=== PATIENT | female | born 1955 | race Caucasian/White ===

== ENCOUNTER 2020-12-02 19:56 | Emergency (ER) | payer OTHER ==
[2020-12-02] MEDS ORDERED: MORPHINE SULFATE 4 MG/ML SYRINGE IVP STA (20:08)
--- NOTE | 2020-12-02 20:46 | XR ---
EXAMINATION TYPE: XR wrist complete LT DATE OF EXAM: 12/02/2020 COMPARISON: NONE HISTORY: Wrist pain TECHNIQUE: 3 views FINDINGS: There is comminuted transverse fracture distal radial metaphysis. There is 100% posterior d isplacement of the distal fragments with some overriding. There is also fracture of the ulnar styloid process. The carpal bones are intact. IMPRESSION: Comminuted displaced fractures as above involving distal radius and ulna.
--- NOTE | 2020-12-02 21:01 | ED ---
Upper Extremity HPI <Rohith Bass - Last Filed: 12/03/20 00:16> - General Source: patient, EMS Mode of arrival: EMS Limitations: physical limitation <Jonathan Petit - Last Filed: 12/03/20 00:47> - General Chief Complaint: Extremity Injury, Upper Stated Complaint: Lt Wrist Injury Time Seen by Provider: 12/02/20 20:04 - History of Present Illness Initial Comments: Patient is a 65-year-old female that presents to emergency problem complaining of left wrist pain. She notes she was [place] a birthday [place] when she slipped lost her balance and fell injuring her left wrist. She notes that she immediately took her watch off because she knew her wrist as well as follow-up and it was obviously deformed. Patient was a was parents while sitting up in bed during exam and interview. Saying that she got fentanyl and the ambulance ride over. She notes that she was having some breakthrough pain at the time of exam. She was otherwise a well-appearing 65-year-old female with no significant past medical history except for asthma and ALLERGIES. She denied any chest pain first breath headache nausea vomiting diarrhea constipation fever fatigue chills. (Jonathan Petit) - Related Data Previous Rx's Medication Instructions Recorded HYDROcodone/APAP 10-325MG [[place] 1 tab PO Q6HR PRN 3 Days #12 tab 12/03/20 10-325] Allergies Allergy/AdvReac Type Severity Reaction Status Date / Time aspirin Allergy Severe Wheezing Verified 12/02/20 20:16 NSAIDS (Non-Steroidal Allergy Severe Wheezing Verified 12/02/20 20:17 Anti-Inflamma Penicillins Allergy Severe Anaphylaxis Verified 12/02/20 20:17 Review of Systems ROS Other: All systems not noted in ROS Statement are negative. <Rohith Bass - Last Filed: 12/03/20 00:16> ROS Other: All systems not noted in ROS Statement are negative. <Jonathan Petit - Last Filed: 12/03/20 00:47> ROS Statement: Those systems with pertinent positive or pertinent negative responses have been documented in the HPI. General Exam Limitations: physical limitation General appearance: alert, in no apparent distress Head exam: Present: atraumatic, normocephalic, normal inspection Eye exam: Present: normal appearance, PERRL, EOMI. Absent: scleral icterus, conjunctival injection, periorbital swelling Neck exam: Present: normal inspection Respiratory exam: Present: normal lung sounds bilaterally. Absent: respiratory distress, wheezes, rales, rhonchi, stridor Cardiovascular Exam: Present: regular rate, normal rhythm, normal heart sounds. Absent: systolic murmur, diastolic murmur, rubs, gallop, clicks Left Forearm Wrist exam: Present: tenderness, swelling, deformity. Absent: normal inspection, full ROM, abrasion, laceration, ecchymosis, crepitus, tenderness over anatomical snuff box Neurological exam: Present: alert, oriented X3 Psychiatric exam: Present: normal affect, normal mood Skin exam: Present: warm, dry, intact, normal color. Absent: rash <Jonathan Petit - Last Filed: 12/03/20 00:47> Course Vital Signs 12/02/20 12/02/20 12/02/20 20:06 22:15 23:07 Temperature 97.5 F L Pulse Rate 73 73 74 Respiratory 18 18 18 Rate Blood Pressure 175/90 159/100 174/93 O2 Sat by Pulse 99 96 100 Oximetry 12/02/20 12/02/20 23:10 23:16 Temperature Pulse Rate 80 61 Respiratory 14 16 Rate Blood Pressure 189/98 160/91 O2 Sat by Pulse 100 99 Oximetry Procedures - Orthopedic Fracture Reduction Fracture #1 Consent Obtained: verbal consent Side: left Fracture Reduction Location: radius, ulna Analgesia: procedural sedation Technique: direct manipulation, traction/counter-traction Post-Reduction Neuro Exam: intact Post-Reduction Vascular Exam: intact Splint Applied: Yes Patient Tolerated Procedure: well - Orthopedic Splinting/Casting Injury #1 Side: left Upper Extremity Injury Location: wrist Upper Extremity Immobilizer: sugar tong splint - Procedural Sedation Procedural Sedation Start Time: 23:10 Procedural Sedation Stop Time: 23:16 Indications: fracture/dislocation reduction ASA Class: I Mallampati Airway Score: 2 Preparation: memory care director applied, pulse oximeter, capnometry used, supplemental O2 applied, suction/airway equipment at bedside, IV secured Ketamine: IV Ketamine Dose: 17 (mg) IV Propofol Dose (mgs): 17 Complications: none Patient Tolerated Procedure: well <Rohith Bass - Last Filed: 12/03/20 00:16> - Orthopedic Splinting/Casting Injury #1 Upper Extremity Immobilizer: Abdirashid wrap <Jonathan Petit - Last Filed: 12/03/20 00:47> - Procedural Sedation Presedation Evaluation: No acute concerns. History of mild asthma. (Rohith Bass) Additional Comments: Patient received a total of 0.25mg/kg of propofol and 0.25mg/kg of ketamine for procedural sedation which she tolerated well without incident. (Rohith Bass) Medical Decision Making - Radiology Data Radiology results: report reviewed, image reviewed <Jonathan Petit - Last Filed: 12/03/20 00:47> - Medical Decision Making Patient is a 65-year-old female complaining of left wrist pain [place] [employer] [place] X-ray the left wrist, 4 mg morphine ordered. X-ray left wrist: There is comminuted transverse fracture distal radial metaphysis. There is 100% posterior displacement of the distal fragments with some overriding. There is also fracture of the ulnar styloid process. Carpal bones are intact. Patient tolerated conscious sedation well, arm was splinted with a sugar tong splint. Case discussed with Dr. Bass, patient can discharge home with follow-up to orthopedics. Dr. Baca was consulted and wanted a postreduction computed tomography scan for follow-up in office use. (Jonathan Petit) - Radiology Data X-ray of the left wrist: There is comminuted transverse fracture distal radial metaphysis. There is 100% posterior displacement of the distal fragments with some overriding. There is also fracture of the ulnar styloid process the carpal bones are intact. CT of the left wrist: Impacted comminuted transverse fracture distal radius. Mild displacement. Ulnar styloid process fracture. No dislocation. (Jonathan Petit) Disposition <Rohith Bass - Last Filed: 12/03/20 00:16> Is patient prescribed a controlled substance at d/c from ED?: No Time of Disposition: 00:47 <Jonathan Petit - Last Filed: 12/03/20 00:47> Clinical Impression: Distal radius fracture, left, Closed fracture of styloid process of left ulna Disposition: HOME SELF-CARE Condition: Stable Instructions (If sedation given, give patient instructions): Wrist Injury (ED), Arm Fracture in Adults (ED) Additional Instructions: Please return to the Emergency Department if symptoms worsen or any other concerns. Follow-up with primary care in 1-2 days. Follow-up with orthopedics on Saturday. Take pain medication as prescribed. Keep splint on throughout the day. Prescriptions: HYDROcodone/APAP 10-325MG [[place] 10-325] 1 tab PO Q6HR PRN 3 Days #12 tab PRN Reason: Pain Referrals: None,Stated [Primary Care Provider] - 1-2 days Jose G Baca MD [STAFF PHYSICIAN] - 1-2 days
[2020-12-02] MEDS ORDERED: KETAMINE 10 MG/ML 20 ML VIAL IV ONE (21:49)
[2020-12-02] MEDS ORDERED: PROPOFOL 10 MG/ML 20 ML VIAL IV ONE (21:49)
[2020-12-02] MEDS ORDERED: ONDANSETRON 4 MG/2 ML VIAL IVP STA (21:55)
[2020-12-02] MEDS ORDERED: SODIUM CHLORIDE 0.9% 1,000 ML IV ONE (23:01)
[2020-12-03] MEDS ORDERED: HYDROcodone/APAP 10-325MG 1 EACH TAB PO ONE (00:31)
--- NOTE | 2020-12-03 00:44 | CT ---
EXAMINATION TYPE: CT forearm LT wo con DATE OF EXAM: 12/03/2020 COMPARISON: None HISTORY: wrist fracture CT DLP: 408.2 mGycm Automated exposure control for dose reduction was used. Images were obtained from the distal humerus to the distal metacarpals without contrast. There is impacted comminuted transverse fracture distal radial metaphysis. There is posterior displac ement of the major fragments 4 mm. There is no dislocation at the radiocarpal joint. There is displac ed fracture of the ulnar styloid process. Separation is 2 to 3 mm. The carpal bones are intact. The m etacarpals appear intact. The proximal radius and ulna appear intact. I see no evidence of a fracture at the elbow. Distal humerus is intact. There is no sign of elbow joint effusion. IMPRESSION: Impacted comminuted transverse fracture distal radius. Mild displacement. Ulnar styloid process fract ure. No dislocation.
[2020-12-03] MEDS ORDERED: ONDANSETRON 4 MG/2 ML VIAL IVP STA (00:57)
[2020-12-03] MEDS ORDERED: HYDROmorphone 1 MG/ML 1 ML SYRINGE IVP STA (00:57)
[2020-12-03 01:22] VITALS: BP 181/91; PULSE 78; RESP 15; TEMP 97.9
== END 2020-12-03 01:22 | disposition home or self-care (01) ==
LOC: EC 19:56
DX: S52.502A Unspecified fracture of the lower end of left radius, initial encounter for closed fracture (principal); S52.612A Displaced fracture of left ulna styloid process, initial encounter for closed fracture; Z88.6 Allergy status to analgesic agent; Z88.0 Allergy status to penicillin; W01.0XXA Fall on same level from slipping, tripping and stumbling without subsequent striking against object, initial encounter; Y92.39 Other specified sports and athletic area as the place of occurrence of the external cause
CPT/HCPCS: 73110; 73200; 96374; 96375 ×4; 96376; 96361; 99285; 25565; J2270; J2405 ×2; J1170; J2704; 25605

== ENCOUNTER 2020-12-04 15:38 | Emergency (ER) | payer OTHER ==
[2020-12-04] MEDS ORDERED: HYDROcodone/APAP 5-325MG 1 EACH TAB PO STA (18:55)
--- NOTE | 2020-12-04 19:23 | ED ---
General Adult HPI - General Chief complaint: Extremity Injury, Lower Stated complaint: broken arm, hand swelling-revisit Time Seen by Provider: 12/04/20 18:12 Source: family, RN notes reviewed Mode of arrival: wheelchair Limitations: no limitations - History of Present Illness Initial comments: 65-year-old female presents to the emergency room for a chief complaint of left arm pain. Patient reports that 2 days ago she slipped at a bowling alley and broke her wrist. States that the cast is digging into her elbow area. States that she did try to loosen the karol wrap however it is still unclear pain. Patient states the swelling in her hand is also worse which is concerning to her. She denies any numbness or tingling in the hand.Patient has no other complaints at this time including shortness of breath, chest pain, abdominal pain, nausea or vomiting, headache, or visual changes. - Related Data Previous Rx's Medication Instructions Recorded HYDROcodone/APAP 10-325MG [[place] 1 tab PO Q6HR PRN 3 Days #12 tab 12/03/20 10-325] Ondansetron Odt [Zofran Odt] 4 mg PO Q8HR PRN #10 tab 12/03/20 Allergies Allergy/AdvReac Type Severity Reaction Status Date / Time aspirin Allergy Severe Wheezing Verified 12/04/20 15:51 NSAIDS (Non-Steroidal Allergy Severe Wheezing Verified 12/04/20 15:51 Anti-Inflamma Penicillins Allergy Severe Anaphylaxis Verified 12/04/20 15:51 Review of Systems ROS Statement: Those systems with pertinent positive or pertinent negative responses have been documented in the HPI. ROS Other: All systems not noted in ROS Statement are negative. Past Medical History History of Any Multi-Drug Resistant Organisms: None Reported Past Psychological History: No Psychological Hx Reported Smoking Status: Never smoker Past Alcohol Use History: None Reported Past Drug Use History: None Reported General Exam Limitations: no limitations General appearance: alert Head exam: Present: atraumatic Eye exam: Present: normal appearance, PERRL, EOMI. Absent: scleral icterus, conjunctival injection ENT exam: Present: normal exam, mucous membranes moist Neck exam: Present: normal inspection, full ROM. Absent: tenderness Respiratory exam: Present: normal lung sounds bilaterally. Absent: respiratory distress, wheezes Cardiovascular Exam: Present: regular rate, normal rhythm, normal heart sounds Extremities exam: Present: normal capillary refill (Capillary refill less than 2 seconds, DP pulse 2+ left upper extremity), other (Moderate edema noted of the fingers of the left hand. compartment are soft throughout the left upper extremity. ) Course Vital Signs 12/04/20 15:46 Temperature 98.1 F Pulse Rate 103 H Respiratory 20 Rate Blood Pressure 190/96 O2 Sat by Pulse 97 Oximetry Medical Decision Making - Medical Decision Making Splint was removed and new splint was applied. This significantly helped patient's comfort. Wrist x-ray was obtained after splint applied. This showed a redemonstration of comminuted intra-articular fracture of the distal radius with improved anatomic alignment. Re-demonstration of mildly displaced ulnar styloid fracture at this time patient has information for orthopedics. She will call tomorrow. She will return for any worsening symptoms. Disposition Clinical Impression: Distal radius fracture, left, Closed fracture of styloid process of left ulna Disposition: HOME SELF-CARE Condition: Good Instructions (If sedation given, give patient instructions): Wrist Fracture in Adults (ED) Additional Instructions: Please follow up with orthopedics. Referral information was given at your previous visit. Call first thing tomorrow morning. Return to the emergency room for any worsening symptoms. Is patient prescribed a controlled substance at d/c from ED?: No Time of Disposition: 20:24
--- NOTE | 2020-12-04 19:46 | XR ---
EXAMINATION TYPE: XR wrist limited LT DATE OF EXAM: 12/04/2020 CLINICAL HISTORY: Wrist pain, fall TECHNIQUE: Frontal and lateral views of the left wrist were obtained COMPARISON: Left wrist CT same day and left wrist radiograph 12/03/2020 FINDINGS: Interval placement of overlying casting material which obscures fine bony details. Redemonstration of comminuted intra-articular fracture of the distal radius with improved anatomic alignment.. redemons tration of mildly displaced ulnar styloid fracture. Mild diffuse soft tissue swelling of the wrist. R emaining joint spaces are maintained. IMPRESSION: 1. Redemonstration of comminuted intra-articular fracture of the distal radius with improved anatomic alignment. 2. Redemonstration of mildly displaced ulnar styloid fracture.
[2020-12-04 21:00] VITALS: BP 180/96; PULSE 93; RESP 18; TEMP 98.2
== END 2020-12-04 20:38 | disposition home or self-care (01) ==
LOC: EC 15:38
DX: S52.612A Displaced fracture of left ulna styloid process, initial encounter for closed fracture (principal); S52.572A Other intraarticular fracture of lower end of left radius, initial encounter for closed fracture; W01.0XXA Fall on same level from slipping, tripping and stumbling without subsequent striking against object, initial encounter; Y92.39 Other specified sports and athletic area as the place of occurrence of the external cause
CPT/HCPCS: 99284